=== PATIENT | male | born 1965 | race Caucasian/White ===

== ENCOUNTER 2021-01-10 17:13 | Emergency (ER) | payer OTHER ==
[~2021-01-10] VITALS: Ht 172.7 cm; Wt 93.0 kg
== END 2021-01-10 20:59 | disposition home or self-care (01) ==
LOC: ER 17:13
DX: T59.91XA Toxic effect of unspecified gases, fumes and vapors, accidental (unintentional), initial encounter (principal); R53.81 Other malaise; R51.9 Headache, unspecified; Y92.813 Airplane as the place of occurrence of the external cause